=== PATIENT | female | born 1950 | race Caucasian/White ===

== ENCOUNTER 2017-06-21 09:38 | Day surgery (SDC) | payer MEDICARE, BC ==
[~2017-06-21] VITALS: Ht 157.5 cm; Wt 65.0 kg
[2017-06-21] VITALS (8 sets, daily range): BP systolic 101–203; BP diastolic 48–95; PULSE 78–87; RESP 15–20; TEMP 98.6–98.7; O2SAT 92–98
[2017-06-21] MEDS ORDERED: SODIUM CHLOR 0.9% 1000 ML IV SCH (10:00)
[2017-06-21] MEDS ORDERED: CALC1TAB87 PO (10:02)
[2017-06-21] MEDS ORDERED: CYAN1TAB24 (10:02)
[2017-06-21] MEDS ORDERED: MULTTAB67 PO (10:02)
[2017-06-21] MEDS ORDERED: LOSA50TA PO (10:02)
[2017-06-21] MEDS ORDERED: METO50TA PO (10:02)
[2017-06-21] MEDS ORDERED: MIDAZOLAM HCL 5 MG/5 ML VIAL ONE (11:21)
[2017-06-21] MEDS ORDERED: LIDOCAINE HCL 1% 20 ML VIAL ONE (11:22)
--- NOTE | 2017-06-21 12:06 | PD.RAD ---
Post CT Procedure Prog Note Pre Procedure Diagnosis: (1) Elevated liver enzymes Post Procedure Diagnosis: (1) Elevated liver enzymes Procedure Date: Jun 21, 2017 Supervising Radiologist: Chip Lester Estimated blood loss: minimal Anesthesia: Conscious Sedation Plan of Activity Patient to Unit: [facility] Patient Condition: Good See PACS Report for procedural detail/treatment Biopsy Imaging Guidance: CT Side: Right Biopsy Procedure: Liver Specimen: Core Biopsy Plan to [facility] for monitoring then discharge in 4 hours. Chip Lester MD Jun 21, 2017 12:06
[2017-06-21] MEDS ORDERED: HYDROmorphone HCL 2 MG TAB PO PRN (12:15)
--- NOTE | 2017-06-21 13:00 | RADRPT ---
EXAM DATE/TIME: 06/21/2017 11:43 [place] COMPARISON: No previous studies available for comparison. INDICATIONS : Elevated liver function. SEDATION TIME: 30 minutes BIOPSY SITE: Right MEDICATION(S): 1.) 4 mg midazolam (Versed) IV 2.) 125 mcg fentanyl (Sublimaze) IV DEVICE(S): 1.) 18 gauge Temno core biopsy needle MEDICAL HISTORY : Hepatitis C. SURGICAL HISTORY : None. ENCOUNTER: Initial ACUITY: 1 day PAIN SCORE: 0/10 LOCATION: Right A total of three core specimen(s) were obtained and sent to the laboratory for pathologic evaluation. PROCEDURE: 1. CT guided liver biopsy. 2. Conscious sedation with continuous EKG and oximetry monitoring. 3. EKG and oximetry remained stable throughout the procedure. Prior to the procedure informed consent was obtained. Any appropriate prior imaging studies were rev iewed. Using automated exposure control and adjustment of the mA and/or kV according to patient size, radiat ion dose was kept as low as reasonably achievable to obtain optimal diagnostic quality images. DICOM format image data is available electronically for review and comparison. The site was prepped in a sterile fashion. Full sterile technique was used, including cap, mask, tiago rile gloves and gown and a large sterile sheet. Hand hygiene and 2% chlorhexidine and/or betadine/al cohol prep was utilized per protocol for cutaneous antisepsis. The skin and subcutaneous tissues wer e infiltrated with local anesthetic solution. With CT guidance the right lobe of the liver was localized. Biopsy was performed using the prescribed needle as above. Adequate hemostasis was obtained with compression at the puncture site. Follow-up CT scan reveals no hemorrhage. Liver density is less than spleen density. The patient tolerated the procedure well and there were no complications. The patient was returned to the Radiology Outpatient Unit in stable condition. CONCLUSION: 1. Uncomplicated right lobe liver biopsy, as above. 2. Hepatic steatosis. Chip Lester MD on June 21, 2017 at 12:58 Board Certified Radiologist. This report was verified electronically.
[2017-06-21] MEDS ORDERED: PILL SPLITTER OTHER PRN (13:15)
== END 2017-06-21 15:50 | disposition home or self-care (01) ==
LOC: HRAD 09:38 → HRIP 09:41 → HRAD 15:50
PROVIDERS: ATTEND Internal Medicine Gastroenterology
DX: K75.81 Nonalcoholic steatohepatitis (NASH) (principal); B19.20 Unspecified viral hepatitis C without hepatic coma
CPT/HCPCS: 47000; 77012; 83540; 88307; 88313; J2250; J3010